=== PATIENT | female | born 1990 | race Caucasian/White ===

== ENCOUNTER 2016-10-04 19:03 | Outpatient (CLI) | payer OTHER ==
[~2016-10-04] VITALS: Ht 170.2 cm; Wt 75.0 kg
[2016-10-04 19:33] VITALS: BP 119/82; PULSE 113; TEMP 98.2
[2016-10-04 20:30] VITALS: BP 123/75; PULSE 95; TEMP 98.2
[2016-10-05] MEDS ORDERED: CEPHALEXIN500 M1 (14:00)
== END 2016-10-04 20:45 | disposition home or self-care (01) ==
LOC: LDRO 19:03
DX: O47.1 False labor at or after 37 completed weeks of gestation (principal); Z3A.40 40 weeks gestation of pregnancy

== ENCOUNTER 2016-10-05 13:41 | Inpatient (IN) | payer OTHER ==
[~2016-10-05] VITALS: Ht 170.2 cm; Wt 75.9 kg
[2016-10-05] VITALS (25 sets, daily range): BP systolic 115–153; BP diastolic 64–97; PULSE 71–134; TEMP 98.2–99.3
[2016-10-05] MEDS ORDERED: CEPHALEXIN500 M1 (14:00)
[2016-10-05 14:54] LABS: BASO % 0.2 % (0.0-2.0); EOS % 0.1 % (0-4.0); GRAN # 16.3 (1.4-6.5); GRAN % 84.8 % (42.2-75.2); LYMPH # 1.4 (1.2-3.4); LYMPH % 7.4 % (20.0-51.0); MEAN CELL VOLUME 92 fl (80.0-100.0); MEAN CORPUSCULAR HGB CONC 34 g/dl (33.0-37.0); MEAN PLATELET VOLUME 11.4 fl (7.4-10.4); MONO # 1.3 (0.1-0.6); MONO % 6.9 % (1.7-9.3); PLATELET COUNT 206 K/mm3 (130-400); RED BLOOD COUNT 3.54 M/mm3 (4.10-5.30); REDCELL DISTRIBUTION WIDTH-CV 12.9 % (11.5-14.5); WHITE BLOOD COUNT 19.2 K/mm3 (4.8-10.8)
[2016-10-05 14:56] LABS: HEMATOCRIT 32.5 % (37.0-47.0); HEMOGLOBIN 10.9 g/dl (12.5-16.0); MEAN CORPUSCULAR HEMOGLOBIN 31 pg (27.0-31.0)
[2016-10-06 00:30] VITALS: BP 123/64; PULSE 110
[2016-10-06 04:00] VITALS: BP 120/78; PULSE 100; TEMP 97.9
[2016-10-06 08:30] VITALS: BP 109/70; PULSE 94; TEMP 98.1
[2016-10-06 12:10] VITALS: BP 110/72; PULSE 87; TEMP 97.9
[2016-10-06 17:00] VITALS: BP 103/57; PULSE 86; TEMP 98.2
[2016-10-06 22:00] VITALS: BP 106/62; PULSE 87; TEMP 97.8
[2016-10-07 06:54] VITALS: BP 123/78; PULSE 87; TEMP 98.1
[2016-10-07] MEDS ORDERED: IBU800 M1 PO (08:42)
[2016-10-07] MEDS ORDERED: PERCOCET 325 MG1 TA2 PO (08:42)
[2016-10-07 15:43] VITALS: BP 114/76; PULSE 80; TEMP 98.2
== END 2016-10-07 17:48 | disposition home or self-care (01) | DRG 775 ==
LOC: LDRO 13:41 → OB 14:30 → LDR 14:30 → OB 10-06
PROVIDERS: Obstetrics & Gynecology
PROC: 10E0XZZ Delivery of Products of Conception, External Approach (ICD-10-PCS; principal; 2016-10-05)
PROC: 0UQMXZZ Repair Vulva, External Approach (ICD-10-PCS; 2016-10-05)
DX: O48.0 Post-term pregnancy (principal); O36.0130 Maternal care for anti-D [Rh] antibodies, third trimester, not applicable or unspecified; O99.824 Streptococcus B carrier state complicating childbirth; O77.0 Labor and delivery complicated by meconium in amniotic fluid; O70.0 First degree perineal laceration during delivery; Z3A.40 40 weeks gestation of pregnancy; Z37.0 Single live birth
CPT/HCPCS: J2540; J2590; J7120